=== PATIENT | male | born 1935 | race Caucasian/White ===

== ENCOUNTER 2022-12-18 14:37 | Outpatient (CLI) | payer MEDICARE | END 2022-12-18 14:38 | disposition home or self-care (01) | LOC: CSHMRI 14:37 | PROVIDERS: ATTEND Internal Medicine | DX: G31.9 Degenerative disease of nervous system, unspecified (principal); R90.82 White matter disease, unspecified | CPT/HCPCS: 70551 ==

== ENCOUNTER 2023-03-21 08:13 | Outpatient (CLI) | payer MEDICARE ==
[2023-03-21] MEDS ORDERED: Iopamidol 300 61% 100 ML VIAL FS ONE (09:27)
== END 2023-03-21 08:14 | disposition home or self-care (01) ==
LOC: CSHCT 08:13
PROVIDERS: ATTEND Internal Medicine
DX: R63.4 Abnormal weight loss (principal); K44.9 Diaphragmatic hernia without obstruction or gangrene
CPT/HCPCS: 71260; 74177; 82565; Q9967

== ENCOUNTER 2023-07-09 12:14 | Outpatient (CLI) | payer MEDICARE | END 2023-07-09 12:15 | disposition home or self-care (01) | LOC: CSHCT 12:14 | PROVIDERS: ATTEND Psychiatry & Neurology Neurology | DX: G20.C Parkinsonism, unspecified (principal); I67.82 Cerebral ischemia; G31.9 Degenerative disease of nervous system, unspecified | CPT/HCPCS: 70450 ==